=== PATIENT | male | born 1975 | race Two or more races ===

== ENCOUNTER 2020-12-15 05:03 | Inpatient (IN) | payer OTHER ==
[2020-12-15] VITALS (39 sets, daily range): BP systolic 106–139; BP diastolic 60–96
[~2020-12-15] VITALS: Ht 185.4 cm; Wt 84.8 kg
[2020-12-15] MEDS ORDERED: HYDROCODON-ACE1 EA16 ORAL (06:02)
[2020-12-15] MEDS ORDERED: Bacitracin 50000 Units Vial ONE (06:33)
[2020-12-15] MEDS ORDERED: Gelfoam Size TOPIC ONE (06:33)
[2020-12-15] MEDS ORDERED: Vancomycin 1gm vial IVPB ONE (06:33)
[2020-12-15] MEDS ORDERED: Ropivacaine 5mg/ml Vial 30ml INJ ONE (06:33)
[2020-12-15] MEDS ORDERED: Thrombin 5000 units TOPIC ONE (06:33)
[2020-12-15] MEDS ORDERED: Metoclopramide 10mg/2ml Inj IVP PRN ×2 (06:45→07:30)
[2020-12-15] MEDS ORDERED: DiphenhydrAMINE 50mg/ml Inj IVP PRN (06:45)
[2020-12-15] MEDS ORDERED: Ketorolac 30mg Inj IV PRN ×2 (06:45)
[2020-12-15] MEDS ORDERED: Hydromorphone 0.5mg/0.5ml inj IVP PRN (06:45)
[2020-12-15] MEDS ORDERED: HYDROcodone/Acetamin 7.5/325 tab ORAL PRN ×3 (06:45→07:30)
[2020-12-15] MEDS ORDERED: Acetaminophen (Non formulary) 100 ML IV ONE (06:45)
[2020-12-15] MEDS ORDERED: LR 1000ml 1,000 ML IVLG SCH (06:45)
[2020-12-15] MEDS ORDERED: Meperidine 25mg/1ml Inj (FOR RIGORS ONLY) IV PRN (06:45)
[2020-12-15] MEDS ORDERED: Atropine Sulfate 0.4mg/ml inj IVP PRN (06:45)
[2020-12-15] MEDS ORDERED: oxyCODONE HCL/Acetaminophen 5/325mg ORAL PRN (06:45)
[2020-12-15] MEDS ORDERED: Midazolam 2mg/2ml Inj IVP PRN (06:45)
[2020-12-15] MEDS ORDERED: Labetalol 5mg/ml 20ml vial IV PRN (06:45)
[2020-12-15] MEDS ORDERED: LORazepam Inj 2mg/ml 1ml IV PRN (06:45)
[2020-12-15] MEDS ORDERED: HYDROcodone/Acetamin 5/325 tab ORAL PRN ×2 (06:45→07:30)
[2020-12-15] MEDS ORDERED: fentaNYL 100 mcg/2 mL IV PRN (06:45)
[2020-12-15] MEDS ORDERED: Rocuronium Bromide 50mg/5ml Inj IV ONE (06:50)
[2020-12-15] MEDS ORDERED: Sterile Water Irrig 1000ml IRRIG ONE (07:00)
[2020-12-15] MEDS ORDERED: propofoL 1,000mg/100ml IV ONE (07:00)
[2020-12-15] MEDS ORDERED: Lidocaine 1% MPF 10mg/ml 5ml ONE (07:00)
[2020-12-15] MEDS ORDERED: ceFAZolin sod 2 GM in NS 55 ML IVPB ONE (07:00)
[2020-12-15] MEDS ORDERED: Sodium Chloride 10ml vial INJ ONE (07:00)
[2020-12-15] MEDS ORDERED: NS Irrig 1000ml ONE (07:00)
[2020-12-15] MEDS ORDERED: LR 1000ml ONE (07:00)
--- NOTE | 2020-12-15 07:15 | Pre-Procedure Note/Attestation ---
Pre-Procedure Note/Attestation Complete Prior to Procedure Planned Procedure: not applicable Procedure Narrative: L5S1 microdiscectomy hemilaminotomy foraminotomy left sided Indications for Procedure Pre-Operative Diagnosis: L5S1 herniation Attestation I attest that I discussed the nature of the procedure; its benefits; risks and complications; and alternatives (and the risks and benefits of such alternatives), prior to the procedure, with the patient (or the patient's legal apprenticeship representative). I attest that, if there was a reasonable possibility of needing a blood transfusion, the patient (or the patient's legal apprenticeship representative) was given the [facility] standardized written summary, pursuant to the Jabier [place] Blood Safety Act ([place] Health and Safety Code # 1645, as amended). I attest that I re-evaluated the patient just prior to the surgery and that there has been no change in the patient's H&P, except as documented below: Alex Spencer MD Dec 15, 2020 07:15
--- NOTE | 2020-12-15 07:16 | Brief Operative Note ---
Immediate Post Operative Note Operative Note Chief Complaint: Low back pain and radiculopathy Pre-op Diagnosis: L5S1 herniation Procedure: Left sided hemilaminotomy foraminotomy microdiscectomy Post-op Diagnosis: same as pre-op Findings: consistent w/pre-op dx studies Surgeon: Tj Lavender Farm Worker: Omari Anesthesia: general Specimen: none Complications: none Condition: stable Fluids: IVF Estimated Blood Loss: minimal Drains: none Implant(s) used?: No Alex Spencer MD Dec 15, 2020 07:16
[2020-12-15] MEDS ORDERED: NS Irrig 1000ml IRRIG ONE (07:21)
[2020-12-15] MEDS ORDERED: Dyna-Hex 2% Top Sol 2oz TOPIC PRN (07:30)
[2020-12-15] MEDS ORDERED: Morphine Sulfate 4mg/ml Inj (IV USE ONLY) IV PRN (07:30)
[2020-12-15] MEDS ORDERED: Naloxone 0.4mg/ml Inj IVP PRN (07:30)
[2020-12-15] MEDS ORDERED: Morphine Sulfate 2mg/ml Inj(IV/IM USE ONLY) IV PRN (07:30)
[2020-12-15] MEDS ORDERED: Milk of Magnesia 30ml Ud ORAL PRN (07:30)
[2020-12-15] MEDS ORDERED: Chloraseptic Spray 20mL Bottle ORAL PRN (07:30)
[2020-12-15] MEDS ORDERED: Glycopyrrolate 0.2mg/ml 1ml Vial ONE (08:28)
[2020-12-15] MEDS ORDERED: Neostigmine 1mg/ml 10ml Inj ONE (08:28)
--- NOTE | 2020-12-15 09:07 | Anethesia Preoperative Eval ---
Anesthesia Pre-op PMH/ROS General Date of Evaluation: Dec 15, 2020 Time of Evaluation: 06:49 Anesthesiologist: Lianne ASA Score: ASA 2 Mallampati Score Class I : Soft palate, uvula, fauces, pillars visible Class II: Soft palate, uvula, fauces visible Class III: Soft palate, base of uvula visible Class IV: Only hard plate visible Mallampati Classification: Class I Surgeon: Tj Diagnosis: Back Pain Surgical Procedure: L5-S1 Microdiscectomy Anesthesia History: none Family History: no anesthesia problems Allergies: Coded Allergies: No Known Allergies (Unverified , 12/14/20) Medications: see eMAR Patient NPO?: Yes Past Medical History Cardiovascular: Reports: HTN PSxH Narrative: Cholecystectomy Anesthesia Pre-op Phys. Exam Physician Exam Last Vital Signs Date Time Temp Pulse Resp B/P (MAP) Pulse Ox O2 Delivery O2 Flow Rate FiO2 12/15/20 06:04 Room Air 12/15/20 05:48 98.0 84 18 132/92 (105) 98 Constitutional: NAD Neurologic: CN 2-12 intact Cardiovascular: RRR Respiratory: CTA Gastrointestinal: S/NT/ND Airway Exam Mallampati Score: Class I MO: full ROM: full Teeth: missing, intact Anesthesia Pre-op A/P Risk Assessment & Plan Assessment: ASA 2 Plan: GA, SED, GlideScope Status Change Before Surgery: No Pre-Antibiotics Dru Grams Ancef IV Given Within 1 Hr of Incision: Yes Time Given: 07:16 Neil Abdalla MD Dec 15, 2020 09:07
--- NOTE | 2020-12-15 09:09 | Immediate Post-Op Evaluation ---
Immediate Post-Op Evalulation Immediate Post-Op Evalulation Procedure: L5-S1 Microdiscectomy Date of Evaluation: Dec 15, 2020 Time of Evaluation: 09:25 IV Fluids: 1000 LR Blood Products: 0 Estimated Blood Loss: 25 Urinary Output: 0 Blood Pressure Systolic: 108 Blood Pressure Diastolic: 65 Pulse Rate: 73 Respiratory Rate: 16 O2 Sat by Pulse Oximetry: 100 Temperature (Fahrenheit): 97 Pain Score (1-10): 2 Nausea: No Vomiting: No Complications 0 Patient Status: awake, patent, extubated, none Hydration Status: adequate Dru Grams Ancef IV Given Within 1 Hr of Incision: Yes Time Given: 07:16 Neil Abdalla MD Dec 15, 2020 09:09
--- NOTE | 2020-12-15 09:10 | 48 Hour Post Anesthesia Eval ---
Post Anesthesia Evaluation Procedure: L5-S1 Microdiscectomy Date of Evaluation: Dec 15, 2020 Time of Evaluation: 11:34 Blood Pressure Systolic: 111 0: 72 Pulse Rate: 73 Respiratory Rate: 18 Temperature (Fahrenheit): 98 O2 Sat by Pulse Oximetry: 100 Airway: patent Nausea: No Vomiting: No Pain Intensity: 2 Hydration Status: adequate Cardiopulmonary Status: Stable Mental Status/LOC: patient returned to baseline Follow-up Care/Observations: 0 Post-Anesthesia Complications: 0 Follow-up care needed: ready to discharge Neil Abdalla MD Dec 15, 2020 09:10
--- NOTE | 2020-12-15 09:36 | Diagnostic Imaging Report ---
Indication: Intraoperative lumbar localization for surgery, left lower extremity pain Technique: XRAY L Spine 1V Fluoroscopy time: 2.96) seconds DAP: [id number] mGym2 Comparison: None. Findings: Single lateral view lumbar spine in surgery demonstrates surgical hardware posterior to the last disc space in the lumbar spine. There appears to be a transitional vertebra which is either L5 or S1 which is the lower vertebral body of the localization. Impression: Localization of the last full disc space in the lumbar spine.
--- NOTE | 2020-12-15 09:59 | Operative Note - Dictated ---
DATE OF OPERATION: 12/15/2020 SURGEON: Alex Spencer MD PHYSICAL THERAPY NURSE SURGEON: Arjun Salcido MD ANESTHESIOLOGIST: Neil Abdalla MD ANESTHESIA: General endotracheal anesthesia. PREOPERATIVE DIAGNOSES: 1. Intractable back pain. 2. Intractable leg pain. 3. Worsening radiculopathy. 4. Weakness. 5. Herniated nucleus pulposus, L5-S1 herniation. 6. Neural foraminal stenosis, L5-S1. POSTOPERATIVE DIAGNOSES: 1. Intractable back pain. 2. Intractable leg pain. 3. Worsening radiculopathy. 4. Weakness. 5. Herniated nucleus pulposus, L5-S1 herniation. 6. Neural foraminal stenosis, L5-S1. PROCEDURES PERFORMED: 1. Left-sided L5-S1 microdiscectomy. 2. L5-S1 hemilaminotomy, foraminotomy and medial facetectomy. 3. L5-S1 neural foraminotomy 4. Use of intraoperative microscope. 5. Supervision and interpretation of intraoperative fluoroscopy. 6. Supervision and interpretation of somatosensory-evoked potential and free running EMG monitoring. EBL: Less than 100 mL. COMPLICATIONS: None. INDICATIONS FOR THE PROCEDURE: The patient presents for intractable back pain and radiculopathy. The patient tried and failed a prolonged course of conservative management, including but not limited to chiropractic therapy, physical therapy, nonsteroidal anti-inflammatory drugs, medication, ice packs as well as epidural injection. Despite these therapies, the patient still developed recalcitrant pain and elected for definitive management in the form of left-sided L5-S1 microdiscectomy, L5-S1 hemilaminotomy, foraminotomy and medial facetectomy, L5-S1 neural foraminotomy CONSENT: We had a long discussion with the patient regarding definitive surgical treatment options. The patient's MRI demonstrated herniated nucleus pulposus, L5-S1 herniation, neural foraminal stenosis, L5-S1 and as a result, I felt the patient would benefit from the discectomy as well as neural foraminotomy at this level. We had a long discussion with the patient regarding the risks, alternatives, and benefits of surgery. Our description of the risks included a discussion in person as well as a signed consent which detailed all pertinent risks and the procedure itself. Briefly, our discussion included but was not limited to infection, bleeding, pseudarthrosis, spinal cord injury, neurovascular injury, dural tear, CSF leak, neuropathy, paralysis, permanent weakness/drop foot, paresthesias blindness, palsy and weakness. The patient understood there may be a need for revision surgery or additional procedures. Approach related complications including dysphonia, dysphagia, blindness, permanent vocal cord and neural injury, hematoma, swallowing and breathing difficulty. Medical complications including liver, kidney, shock, and cardiopulmonary failure. Anesthesia complications including , swelling. Damage to the musculature, larynx (voice injury or loss),esophagus (throat), trachea, blood vessels and muscles (muscular sprain) and lungs (pneumothorax) during this surgical procedure. Injury to deeper structures may be temporary or permanent. The patient understood these and elected to proceed. A written and verbal consent was given. We discussed the pros and cons of all the alternatives. We discussed the uncertainties associated with the decision. Afterwards I assessed the patients understanding and explored their preferences. All questions were answered and no guarantees were given. Medical clearance was obtained prior to surgery INTRAOPERATIVE FINDINGS: L5-S1: At this level after our standard hemilaminotomy was performed, we performed a foraminotomy of the L5-S1 neural elements and found them to be encroached upon. Foraminotomy was extended to release some pressure; however, there is still something compressing the thecal sac laterally. After careful dissection with a [place] 4, I noticed a rather large fragment of nuclear tissue nucleus pulposus, which had torn through the PLL fibers. The tear of the PLL was approximately 10 degrees cephalad to caudad and had fresh clean edges hugging the nuclear fragment. These were probed similarly with a Microsect curette freeing the nucleus pulposus, which had herniated through the surrounding flaps of the PLL and entered the epidural environment. This was resected with a combination of arthroscopic and 1.5 and 2 mm pituitaries until complete and thorough microdiskectomy was performed. The disc space was irrigated, which freed up some remainder of the nuclear fragments. After dissection of the herniated nucleus pulposus, the traversing and exiting nerve roots at L5-S1 appeared more relaxed and no longer engorged due to pressure, which was occurring from the ventral and dorsal direction from the herniating fragment itself. Afterwards, a Valsalva was performed at 40 mmHg and confirmed no apparent dural leaks. I should in regards to the disc material itself, it was soft and spongy. It was not calcified or crumbled. The disc itself was at appropriate disc height, but not collapsed or [id number]. There were no posterior spurs noted. I make note of all this to say this appeared to be more traumatic in nature and not degenerative. DESCRIPTION OF PROCEDURE: Under the benefit of general endotracheal anesthesia and with the assistance of the entire operative team, the patient was moved from the rney onto the operative table in the prone position on a Vj frame. The head was secured and positioned appropriately. Bilateral arms were secured with Gel pads and foam and all bony prominences were padded. The bilateral lower extremity SCD and SOUTH hose were placed for DVT prophylaxis. A surgical timeout was called which corroborated our planned procedure. Preoperative Antibiotics were administered within 30 minutes of the incision for prophylaxis. Decadron was given for preoperative steroids. Using lateral radiography, the operative levels were delineated. An incision was marked based on our interpretation of lateral radiography and afterwards the body was prepped and draped in the usual sterile manner. The family was notified that we were ready to commence surgery and were called in the waiting room hourly for updates An incision was based on our lateral fluoroscopic image to center the incision at the L5-S1 interspace. The wound was prepped and draped in the usual sterile fashion. Using a scalpel a midline incision was taken down through the skin and subcutaneous tissues until the overlying hemilamina of L5-S1 were visualized. Next, using meticulous hemostasis, hemilamotomies were dissected and retractors were placed. Using a [employer] dental, we confirmed placement at the L5-S1 interspace. We next turned our attention to our decompression. A standard hemilaminotomy foraminotomy medial facetectomy was performed at each level in standard fashion using a Midas-Alfred type AM8 drill bit, straight and angled curettage, and [place] 4 rongeurs until the lateral thecal sac margin and traversing nerve root was visualized. All remainders of the ligamentum flavum and lateral bony margins were resected in total with angled curettage and [place] 4 rongeurs until the lateral thecal sac margin and traversing nerve root was visualized and decompressed. We next turned our attention toward our L5-S1 microdiscectomy on the left side. A [place] 4 was used to gently mobilize the thecal sac medially and this was held retracted with a bayonetted nerve root retractor. It was at this point that we noted a large broad-based disc protrusion with encroachment dorsally on the thecal sac neural foraminal contents. A bayonet and nerve root retractor was then placed carefully to retract the thecal sac and a discectomy was performed using a combination of a long handled 15 blade scalpel, downgoing and straight pituitaries and downgoing curettage. Afterward the disc space was irrigated twice with 20 mL of antibiotic-impregnated saline. All loose and free-floating disc fragments were carefully resected with a narrow pituitary. Having been satisfied with our decompression after our discectomy of all neural elements, we next turned our attention to our neural foraminoplasty/foraminotomy. This was performed through the use of kerrison rongeurs and pituitaries which allowed for the re-creation of the neural foraminal arch at L5-S1. Afterwards, hemostasis was obtained with 60 mL of antibiotic-impregnated saline followed by FloSeal and Gelfoam. After sponge and needle count were found to be correct, we next turned our attention to closure. Closure consisted of 1-0 Vicryl in standard interrupted fashion. Zosyn was placed deep to the fascia and superficial to the fascia for antibiotic prophylaxis. Skin closure was performed with 2-0 Vicryl in interrupted fashion followed by a running Monocryl for the skin. Final dressings consisted of Dermabond for the superficial skin, Telfa and Tegaderm. The patient tolerated the procedure well. The patient was extubated after the conclusion of surgery without incident. We discussed the findings of the surgery with the family upon completion of the case. At this point the patient will be transferred to the spine floor for further observation. Alex Spencer M.D. DR: MERCEDES JOB#: [id number] CC: SHANE
[2020-12-15] MEDS: ceFAZolin sod 1 GM in D5W 55 ML IV SCH ×2 (14:31→22:41)
--- NOTE | 2020-12-15 16:07 | NUR ---
NURSE NOTES: Patient alert x4; on Nasal Cannula 3 liters: IV Left-Hand LR running; SCD on; Neuro check; surgery cite dry and intact, Ice pack placed on the posterior back; side rails up x2, breaks engaged, bed at lowest position; belonging counted and signed by patient and transferring nurse; will keep monitoring.
[2020-12-15] MEDS: Docusate 100mg cap ORAL SCH (17:18)
[2020-12-15] MEDS: Morphine Sulfate 4mg/ml Inj (IV USE ONLY) IV PRN ×2 (17:19→20:40)
[2020-12-15] MEDS: NS w/KCl 20mEq 1000ml 1,000 ML IV SCH (19:40)
[2020-12-15] MEDS: HYDROmorphone 1mg/ml Carpuject IVP PRN ×2 (19:42→22:41)
--- NOTE | 2020-12-15 19:45 | NUR ---
NURSE HAND-OFF: Important Events on Shift:Post OP patient Patient Status: Diet: Pending Orders: Pending Results/Labs: Pending MD notification: Latest Vital Signs: Temperature 96.6 , Pulse 94 , B/P 136 /71 , Respiratory Rate 18 , O2 SAT 98 , Nasal Cannula, O2 Flow Rate 3 . Vital Sign Comment: Latest Spencer Fall Score: 30 Fall Risk: Medium Risk Safety Measures: Call light , Bed Alarm , Side Rails Side Rails x1, Bed position Low and Locked. Fall Precautions: Report given to .
--- NOTE | 2020-12-15 19:46 | NUR ---
NURSE NOTES: Received patient in bed. A&OX4. NC 3L on. IV site patent and intact. SCD on. Bed in lowest position. Call light within reach. Will continue to monitor.
[2020-12-16] VITALS: BP 120/61
[2020-12-16] MEDS: Morphine Sulfate 4mg/ml Inj (IV USE ONLY) IV PRN ×5 (00:26→18:02)
[2020-12-16] MEDS: HYDROmorphone 1mg/ml Carpuject IVP PRN ×4 (02:33→15:17)
[2020-12-16 04:00] VITALS: BP 136/68
[2020-12-16] MEDS: NS w/KCl 20mEq 1000ml 1,000 ML IV SCH ×2 (05:27→15:00)
[2020-12-16] MEDS: ceFAZolin sod 1 GM in D5W 55 ML IV SCH (05:29)
--- NOTE | 2020-12-16 07:50 | NUR ---
NURSE HAND-OFF: Important Events on Shift: Pain management Patient Status: Diet: Pending Orders: Pending Results/Labs: Pending MD notification: Latest Vital Signs: Temperature 97.7 , Pulse 90 , B/P 136 /68 , Respiratory Rate 18 , O2 SAT 98 , Nasal Cannula, O2 Flow Rate 3.0 . Vital Sign Comment: Latest Spencer Fall Score: 30 Fall Risk: Medium Risk Safety Measures: Call light Within Reach, Bed Alarm Zone 1, Side Rails Side Rails x2, Bed position Low and Locked. Fall Precautions: Door Sign Patient Fall Education Report given to Fadia COLON.
--- NOTE | 2020-12-16 07:52 | NUR ---
NURSE NOTES: Report received from Leti COLON. Patient seen on rounds, awake and up in bed, not in distress, on O2 at 3lpm via NC. Pt c/o pain over lower back rated 8/10 radiating to the pelvic area, with reports of moderate relief with PRN pain medication. Dressing dry and intact with no signs of bleeding. Bed low and locked, siderails up x2, call light placed within reach and instructed to call nurse for assistance. Will continue to monitor.
[2020-12-16 08:00] VITALS: BP 126/79
[2020-12-16] MEDS: Docusate 100mg cap ORAL SCH ×2 (08:56→18:01)
--- NOTE | 2020-12-16 10:00 | NUR ---
P.T Note: P.T evaluation completed and tx initiated per spinal protocol. Please refer to P.T evaluation for current functional status.
--- NOTE | 2020-12-16 11:11 | 48 Hour Post Anesthesia Eval ---
Post Anesthesia Evaluation Procedure: L5-S1 Microdiscectomy Date of Evaluation: Dec 16, 2020 Time of Evaluation: 11:09 Blood Pressure Systolic: 124 0: 76 Pulse Rate: 72 Respiratory Rate: 18 Temperature (Fahrenheit): 97.6 O2 Sat by Pulse Oximetry: 98 Airway: patent Nausea: No Vomiting: No Pain Intensity: 4 Hydration Status: adequate Cardiopulmonary Status: stable Mental Status/LOC: patient returned to baseline Follow-up Care/Observations: n/a Post-Anesthesia Complications: none Follow-up care needed: N/A Logan Dexter MD Dec 16, 2020 11:11
[2020-12-16 12:00] VITALS: BP 109/72
[2020-12-16 16:00] VITALS: BP 130/81
[2020-12-16] MEDS ORDERED: HYDROCODON-ACE1 EA13 ORAL (18:31)
--- NOTE | 2020-12-16 19:44 | NUR ---
NURSE HAND-OFF: Important Events on Shift: Patient awaiting transportation, discharge paperwork done, endorsed to remove PIV Patient Status: Stable Diet: ADAT Pending Orders: N Pending Results/Labs: N Pending MD notification: N Latest Vital Signs: Temperature 97.8 , Pulse 93 , B/P 130 /81 , Respiratory Rate 18 , O2 SAT 95 , Nasal Cannula, O2 Flow Rate 3.0 . Vital Sign Comment: Latest Spencer Fall Score: 20 Fall Risk: Low Risk Safety Measures: Call light Within Reach, Bed Alarm Zone 1, Side Rails Side Rails x2, Bed position Low and Locked. Fall Precautions: Door Sign Patient Fall Education Report given to Leti COLON.
[2020-12-16 20:00] VITALS: BP 123/78
--- NOTE | 2020-12-16 20:13 | NUR ---
NURSE NOTES: Patient discharged home with stable condition. IV and ID band removed. All belongings(include walker and portable toilet) were sent with patient. VS stable. Primary nurse escort to the gate via wheelchair. Patient was picked up by girlfriend at the gate.
--- NOTE | 2020-12-17 11:08 | Discharge Summary ---
Discharge Summary Discharge Summary _ Date of admission: 12/15/2020 Date of discharge: 12/16/[address] Spencer History of Present Illness and Brief Hospital Course Mr. Cameron is a 45-year-old male who presented to [facility] for a scheduled surgery. Patient had intractable back pain and radiculopathy. Patient failed prolonged course of conservative management including but not limited to chiropractic therapy, physical therapy, nonsteroidal anti- inflammatory drugs, medication, ice packs as well as epidural injection. The patient still developed recalcitrant pain and elected for definitive management. Patient underwent left-sided L5-S1 microdiscectomy, L5-S1 hemilaminotomy, foraminotomy and medial facetectomy, and L5-S1 neural foraminotomy. Patient tolerated the procedure well. The details of the procedure can be found in the operative note by Dr. Spencer. Patient was closely monitored after the procedure. Patient was medically stable for discharge and was discharged home on 12/16/2020. Patient was given prescription for a pain medication upon discharge. Consultants: None Discharge Condition Stable Discharge diet Regular Final diagnoses Intractable back pain Intractable leg pain Radiculopathy Weakness Herniated nucleus pulposus, L5-S1 herniation Neuroforaminal stenosis, L5-S1 s/p Left-sided L5-S1 microdiscectomy. s/p L5-S1 hemilaminotomy, foraminotomy and medial facetectomy. s/p L5-S1 neural foraminotomy I have been assigned to dictate discharge summary for this account. I was not involved in the patient's management Carlos Branham Dec 17, 2020 11:08
--- NOTE | 2020-12-17 17:44 | Operative Note - Dictated ---
DATE OF OPERATION: 12/16/2020 SURGEON: Alex Spencer MD, Orthopaedic Spine Surgeon. CARDIOLOGY MANAGER SURGEON: KARIE Todd ANESTHESIOLOGIST: Neil Abdalla MD ANESTHESIA: General endotracheal anesthesia. PREOPERATIVE DIAGNOSES: 1. Intractable back pain. 2. Intractable leg pain. 3. Worsening radiculopathy. 4. Weakness. 5. Herniated nucleus pulposus, L4-L5 and L5-S1 herniation. 6. Neural foraminal stenosis, L4-L5 and L5-S1. POSTOPERATIVE DIAGNOSES: 1. Intractable back pain. 2. Intractable leg pain. 3. Worsening radiculopathy. 4. Weakness. 5. Herniated nucleus pulposus, L4-L5 and L5-S1 herniation. 6. Neural foraminal stenosis, L4-L5 and L5-S1. PROCEDURES PERFORMED: 1. L4-L5 microdiscectomy left-sided and L5-S1 microdiscectomy left-sided. 2. L4 laminectomy, L5 laminectomy, and partial medial facetectomy of L4-L5 and L5-S1. 3. L4-L5 and L5-S1 neural foraminotomy through a transpedicular intraforaminal approach. 4. Use of intraoperative microscope. 5. Supervision and interpretation of intraoperative fluoroscopy. 6. Supervision and interpretation of somatosensory-evoked potential and free-running EMG monitoring. ESTIMATED BLOOD LOSS: Less than 100 mL. COMPLICATIONS: None. INDICATIONS FOR THE PROCEDURE: The patient presents for intractable back pain and radiculopathy. The patient tried and failed a prolonged course of conservative management, including but not limited to chiropractic therapy, physical therapy, nonsteroidal anti-inflammatory drugs, medication, ice packs as well as epidural injection. Despite these therapies, the patient still developed recalcitrant pain and elected for definitive management in the form of L4-L5 microdiscectomy left-sided, L5-S1 microdiscectomy left-sided, L4 laminectomy, L5 laminectomy, partial medial facetectomy of L4-L5 and L5-S1, and L4-L5 and L5-S1 neural foraminotomy through a transpedicular intraforaminal approach. CONSENT: We had a long discussion with the patient regarding definitive surgical treatment options. The patient's MRI demonstrated herniated nucleus pulposus of L4-L5 and L5-S1 and neural foraminal stenosis of L4-L5 and L5-S1 and as a result, I felt the patient would benefit from the discectomy as well as neural foraminotomy at this level. We had a long discussion with the patient regarding the risks, alternatives, and benefits of surgery. Our description of the risks included a discussion in person as well as a signed consent, which detailed all pertinent risks and the procedure itself. Briefly, our discussion included but was not limited to infection, bleeding, pseudarthrosis, spinal cord injury, neurovascular injury, dural tear, CSF leak, neuropathy, paralysis, permanent weakness/drop foot, paresthesias blindness, palsy, and weakness. The patient understood there may be a need for revision surgery or additional procedures. Approach-related complications including dysphonia, dysphagia, blindness, permanent vocal cord and neural injury, hematoma, swallowing and breathing difficulty. Medical complications including liver, kidney, shock, and cardiopulmonary failure. Anesthesia complications including , swelling. Damage to the musculature, larynx (voice injury or loss), esophagus (throat), trachea, blood vessels and muscles (muscular sprain) and lungs (pneumothorax) during this surgical procedure. Injury to deeper structures may be temporary or permanent. The patient understood these and elected to proceed. A written and verbal consent was given. We discussed the pros and cons of all the alternatives. We discussed the uncertainties associated with the decision. Afterwards, I assessed the patient's understanding and explored their preferences. All questions were answered and no guarantees were given. Medical clearance was obtained prior to surgery. INTRAOPERATIVE FINDINGS: L4-L5; there was a large broad disc herniation encroaching the left neural foramina. This disc itself was soft and spongy, but not calcified or dehydrated. The disc extruded and had marched south behind the vertebral body of L5, which necessitated a full laminectomy to resect. Dissection behind the vertebral body allowed for removal of the of the vertebral aspect of the herniation. Afterwards, the disc was copiously irrigated. No residual fragments were resected and so a complete and thorough discectomy was performed. Next, we turned our attention to the foraminotomy. The foramina at L4-L5 was rather stenosed; however, after laminectomy was performed, I was able to perform bilateral foraminotomies at L4-L5 without difficulty. L5-S1; at L5-S1, the disc was found to be extruded and sequestered behind the L5 vertebral body superiorly. This necessitated laminectomy at L5 to resect. After laminectomy, the disc was visualized to be a thick band marching cephalad and caudad to the vertebral body of L5. This was probed with a [place] 4 and as much as possible resected using #1.5 and #2 mm pituitaries. At the L5-S1, we encountered a broad-based disc herniation encroaching on the left neural foramina specifically. This was visualized through a tear in the posterior longitudinal ligament. This tear was approximately 10 degrees cephalad to caudad on the left side. There was another tear noted centrally, more vertical in line with the fibers. The edges and the flaps of tear were probed until we were able to retrieve the entirety of the herniated nucleus pulposus fragments. This was then resected with a combination of arthroscopic pituitaries, 1.5 mm and 2 mm pituitaries, and a [employer] pituitary. After complete and thorough resection, we turned our attention towards the sequestered fragment behind the vertebral body of L5. Given that we had performed a complete laminectomy, we were able to carefully mobilize the thecal sac and neural elements carefully to expose the sequestered limb emanating from the L5-S1 disc space and also emanating from the L4-L5 disc space as much as possible. This was resected with a combination of straight 1.5 and 2 mm pituitaries. At L5-S1, the disc space was irrigated copiously. I should note the disc itself was soft and spongy with appropriate disc height. I did not appreciate any bony spurs, dessication, and/or crumbling nature of the disc, which is usually encountered in situations with degenerative process leading me to believe this was more traumatic in nature given the fresh edges of the tear through the posterior longitudinal ligament. DESCRIPTION OF PROCEDURE: Under the benefit of general endotracheal anesthesia and with the assistance of the entire operative team, the patient was moved from [facility] onto the operative table in the prone position on a Vj frame. The head was secured and positioned appropriately. Bilateral arms were secured with Gel Pads and foam and all bony prominences were padded. The bilateral lower extremity SCD and SOUTH hose were placed for DVT prophylaxis. A surgical timeout was called, which corroborated our planned procedure. Preoperative antibiotics were administered within 30 minutes of the incision for prophylaxis. Decadron was given for preoperative steroids. Using lateral radiography, the operative levels were delineated. An incision was marked based on our interpretation of lateral radiography and afterwards the body was prepped and draped in the usual sterile manner. The family was notified that we were ready to commence surgery and were called in the waiting room hourly for updates. An incision was based on our lateral fluoroscopic image to center the incision at the L5-S1 interspace. The wound was prepped and draped in the usual sterile fashion. Using a scalpel, a midline incision was taken down through the skin and subcutaneous tissues until the overlying hemilaminae of L4-L5 and L5-S1 were visualized. Next, using meticulous hemostasis, hemilaminae were dissected and retractors were placed. Using a [employer] dental, we confirmed placement at the L4-L5 and L5-S1 interspace. We next turned our attention to our decompression. L4 laminectomy, L5 laminectomy, and partial medial facetectomy of L4-L5 and L5-S1, was performed in standard fashion using a Midas-Alfred type AM8 drill bit, straight and angled curettage, and [place] 4 rongeurs until the lateral thecal sac margin and traversing nerve root was visualized. All remainders of the ligamentum flavum and lateral bony margins were resected in total with angled curettage and [place] 4 rongeurs until the lateral thecal sac margin and traversing nerve root was visualized and decompressed. We next turned our attention toward our L4-L5 and L5-S1 microdiscectomy on the left side. A [place] 4 was used to gently mobilize the thecal sac medially and this was held retracted with a bayonetted nerve root retractor. It was at this point that we noted a large broad-based disc protrusion with encroachment dorsally on the thecal sac neural foraminal contents. A bayonet and nerve root retractor were then placed carefully to retract the thecal sac and a discectomy was performed using a combination of a long-handled 15 blade scalpel, downgoing and straight pituitaries, and downgoing curettage. Afterward, the disc space was irrigated twice with 20 mL of antibiotic-impregnated saline. All loose and free-floating disc fragments were carefully resected with a narrow pituitary. Having been satisfied with our decompression after our discectomy of all neural elements, we next turned our attention to our neural foraminoplasty/foraminotomy. This was performed through a transpedicular intraforaminal approach using an access probe followed by a neuro-check device, which confirmed ventral placement of our nerve root. Once we confirmed we were safe, we next turned our attention towards placement of our size 10 file under direct microscopic visualization and under lateral fluoroscopy. Using pre- and post-reciprocation imaging, we were able to visualize our direct decompression given the reciprocation allowed for re-creation of the neural foraminal arch at L4-L5 and L5-S1. Afterwards, hemostasis was obtained with 60 mL of antibiotic-impregnated saline followed by FloSeal and Gelfoam. After sponge and needle count were found to be correct, we next turned our attention to closure. Closure consisted of 1-0 Vicryl in standard interrupted fashion. Zosyn was placed deep to the fascia and superficial to the fascia for antibiotic prophylaxis. Skin closure was performed with 2-0 Vicryl in interrupted fashion followed by a running Monocryl for the skin. Final dressings consisted of Dermabond for the superficial skin, Telfa, and Tegaderm. The patient tolerated the procedure well. The patient was extubated after the conclusion of surgery without incident. We discussed the findings of the surgery with the family upon completion of the case. At this point, the patient will be transferred to the spine floor for further observation. Alex Spencer M.D. DR: ADOLFO JOB#: [id number] CC:
== END 2020-12-16 20:15 | disposition home or self-care (01) | DRG 520 ==
LOC: SDSOVERFLO 05:13 → 4E 16:00
DX: M51.17 Intervertebral disc disorders with radiculopathy, lumbosacral region (principal); M48.07 Spinal stenosis, lumbosacral region; Z87.891 Personal history of nicotine dependence; M54.2 Cervicalgia; E66.9 Obesity, unspecified; Z68.24 Body mass index [BMI] 24.0-24.9, adult
CPT/HCPCS: 36415; 72020; 76000; 86850; 86900; 86901; 87081; 94003; 94150; J2180; J2405; J2710